=== PATIENT | male | born 1950 | race Caucasian/White ===

== ENCOUNTER 2024-01-03 20:16 | Emergency (ER) | payer OTHER, MEDICARE ==
[2024-01-03 20:25] VITALS: BP 125/85; PULSE 62; RESP 18; TEMP 98; BMI 29.4
== END 2024-01-03 22:20 | disposition home or self-care (01) ==
LOC: FER 20:16
DX: J06.9 Acute upper respiratory infection, unspecified (principal); B97.89 Other viral agents as the cause of diseases classified elsewhere; R05.9 Cough, unspecified
CPT/HCPCS: 71046-TC-FY; 99283-25

== ENCOUNTER 2025-01-26 06:28 | Day surgery (SDC) | payer OTHER, MEDICARE ==
[2025-01-21 16:44] VITALS: BMI 28.2
[2025-01-26] MEDS ORDERED: PROPOFOL 20 ML ONE (07:03)
[2025-01-26] MEDS ORDERED: MIDAZOLAM HCL 2 MG/2 ML SINGLE DOSE VIAL ONE (07:03)
[2025-01-26] MEDS ORDERED: ACETAMINOPHEN INJECTION 100 ML ONE (07:08)
[2025-01-26] MEDS ORDERED: DEXAMETHASONE SOD PHOSPHATE 10 MG/1 ML VIAL ONE (07:08)
[2025-01-26] MEDS ORDERED: BUPIVACAINE HCL/PF 0.5% (5 MG/ML) 30 ML VIAL IJ ONE (07:08)
[2025-01-26] MEDS ORDERED: oxyCODONE HCL 5 MG TABLET PO PRN ×2 (07:19)
[2025-01-26] MEDS ORDERED: ACETAMINOPHEN 325 MG TABLET (FP) PO PRN (07:19)
[2025-01-26] MEDS ORDERED: ONDANSETRON 4 MG/2 ML VIAL IVPUSH PRN (07:19)
[2025-01-26] MEDS ORDERED: LACTATED RINGERS SOLUTION 1,000 ML IV SCH (07:30)
[2025-01-26] MEDS ORDERED: ceFAZolin SODIUM 1 GM VIAL ONE (08:24)
[2025-01-26] MEDS ORDERED: TRANEXAMIC ACID 1000 MG/10 ML VIAL ONE (08:24)
[2025-01-26] MEDS ORDERED: BUPIVACAINE HCL/EPINEPHRINE/PF 30 ML VIAL IJ ONE (08:43)
[2025-01-26] MEDS ORDERED: ONDANSETRON 4 MG/2 ML VIAL ONE (09:52)
[2025-01-26] MEDS ORDERED: DEXAMETHASONE SOD PHOSPHATE 4 MG/1 ML VIAL ONE (09:52)
[2025-01-26] MEDS ORDERED: KETOROLAC TROMETHAMINE 30 MG/1 ML VIAL ONE (09:52)
[2025-01-26 14:11] VITALS: TEMP 97
[2025-01-26 14:22] VITALS: RESP 16
[2025-01-26 14:32] VITALS: BP 112/60; PULSE 62
== END 2025-01-26 13:30 | disposition home or self-care (01) ==
LOC: FASU 06:28
PROVIDERS: ATTEND Orthopaedic Surgery
PROC: 0RNK4ZZ Release Left Shoulder Joint, Percutaneous Endoscopic Approach (ICD-10-PCS; principal; 2025-01-26 08:43)
PROC: 0LS44ZZ Reposition Left Upper Arm Tendon, Percutaneous Endoscopic Approach (ICD-10-PCS; 2025-01-26 08:43)
DX: S46.012D Strain of muscle(s) and tendon(s) of the rotator cuff of left shoulder, subsequent encounter (principal); S43.432D Superior glenoid labrum lesion of left shoulder, subsequent encounter; M75.02 Adhesive capsulitis of left shoulder; M65.812 Other synovitis and tenosynovitis, left shoulder; M75.52 Bursitis of left shoulder; X58.XXXD Exposure to other specified factors, subsequent encounter
CPT/HCPCS: 88304-TC; 94760; C1713; J0131; J1100